=== PATIENT | female | born 1990 | race Caucasian/White ===

== ENCOUNTER 2020-02-18 15:50 | Outpatient (CLI) | payer OTHER, SELFPAY ==
[2020-02-18 16:03] LABS: Basophils Percent Auto 0.5 % (0.2-1.2); Eosinophils Percent Auto 0.4 % (0-4.4); Immature Granulocyte Absolute 0.01 K/mm3 (0.00-0.031); Immature Granulocyte Percent A 0.1 % (0-0.5); Lymphocytes Absolute Auto 1.94 K/mm3 (0.9-3.2); Lymphocytes Percent Auto 25.3 % (18.3-44.2); Mean Corpuscular HGB Conc 30.6 g/dl (32-36); Mean Corpuscular Hemoglobin 23.4 pg (26-34); Mean Corpuscular Volume 76.6 fl (80-100); Mean Platelet Volume 9.6 fl (7.4-10.4); Monocytes Absolute Auto 0.6 K/mm3 (0.1-0.6); Neutrophils Percent Auto 65.7 % (45.5-73.1); Platelet Count Result 456 k/mm3 (150-375); Red Cell Distribution Width 19.4 % (11.5-14.5); White Blood Count 7.7 K/mm3 (4.5-10.0)
[2020-02-18 16:49] LABS: Iron 25 ug/dL (37-170)
[2020-02-18 16:52] LABS: Alanine Aminotransferase 14 U/L (4-35); Albumin Level 4.7 g/dL (3.5-5.1); Alkaline Phosphatase 86 U/L (38-126); Aspartate Amino Transferase 19 U/L (14-36); Bilirubin,Total 0.3 mg/dL (0.2-1.3); Blood Urea Nitrogen 12 mg/dL (7-17); Calcium 9.2 mg/dL (8.4-10.2); Carbon Dioxide 25 mmol/L (22-30); Chloride 103 mmol/L (98-107); Estimated Glomerular Filt Rate > 60; Glucose 95 mg/dL (65-105); Lactate Dehydrogenase 368 U/L (313-618); Sodium 136 mmol/L (137-145)
[2020-02-18 16:58] LABS: Percent Iron Saturation 5 % (20-50)
[2020-02-18 17:24] LABS: Ferritin 4.03 ng/mL (6.24-137)
[2020-02-22 16:42] LABS: Soluble Transferrin Receptor 2.77 mg/L (0.76-1.76)
== END 2020-02-18 15:51 | disposition home or self-care (01) ==
LOC: ANHLAB 15:52
PROVIDERS: PCP Family Medicine; Visit Provider Internal Medicine Hematology & Oncology
DX: D50.0 Iron deficiency anemia secondary to blood loss (chronic) (principal)
CPT/HCPCS: 36415; 80053; 82728; 83540; 83550; 83615; 84238; 85025

== ENCOUNTER 2020-12-31 09:37 | Outpatient (CLI) | payer OTHER, SELFPAY ==
[2020-12-31 10:00] LABS: Basophils Percent Auto 0.8 % (0.2-1.2); Eosinophils Absolute Auto 0.1 K/mm3 (0-0.3); Eosinophils Percent Auto 2.2 % (0-4.4); Hematocrit 41.4 % (37.0-47.0); Hemoglobin 13.7 g/dL (12.0-15.0); Lymphocytes Absolute Auto 1.83 K/mm3 (0.9-3.2); Lymphocytes Percent Auto 36.9 % (18.3-44.2); Mean Corpuscular HGB Conc 33.1 g/dl (32-36); Mean Corpuscular Hemoglobin 29.8 pg (26-34); Mean Platelet Volume 9.5 fl (7.4-10.4); Monocytes Absolute Auto 0.3 K/mm3 (0.1-0.6); Monocytes Percent Auto 6.5 % (2.6-8.5); Neutrophils Absolute Auto 2.7 K/mm3 (1.3-6.7); Neutrophils Percent Auto 53.6 % (45.5-73.1); Platelet Count Result 268 k/mm3 (150-375); Red Cell Distribution Width 12.7 % (11.5-14.5)
[2020-12-31 12:16] LABS: Alanine Aminotransferase 16 U/L (4-35); Albumin Level 4.3 g/dL (3.5-5.1); Alkaline Phosphatase 59 U/L (38-126); Anion Gap 6 mmol/L (8-16); Aspartate Amino Transferase 20 U/L (14-36); Bilirubin,Total 0.3 mg/dL (0.2-1.3); Blood Urea Nitrogen 11 mg/dL (7-17); Calcium 9.1 mg/dL (8.4-10.2); Carbon Dioxide 26 mmol/L (22-30); Chloride 106 mmol/L (98-107); Estimated Glomerular Filt Rate > 60; Glucose 104 mg/dL (65-105); Potassium 4.4 mmol/L (3.4-5.0); Sodium 138 mmol/L (137-145)
[2020-12-31 12:43] LABS: Iron 119 ug/dL (37-170)
[2020-12-31 12:53] LABS: Percent Iron Saturation 38 % (20-50)
[2020-12-31 13:20] LABS: Folic Acid 6.1 ng/mL (2.76->20)
== END 2020-12-31 09:38 | disposition home or self-care (01) ==
LOC: ANHLAB 09:39
PROVIDERS: PCP Family Medicine; Visit Provider Internal Medicine Hematology & Oncology
DX: D50.0 Iron deficiency anemia secondary to blood loss (chronic) (principal)
CPT/HCPCS: 36415; 80053; 82607; 82728; 82746; 83540; 83550; 85025

== ENCOUNTER 2022-08-06 08:27 | Emergency (ER) | payer BC, OTHER, SELFPAY ==
--- NOTE | ~2022-08-06 | CT_ITS ---
EXAMINATION: CT abdomen pelvis wo con DATE: 08/06/2022 10:52 INDICATION: Right flank pain TECHNIQUE: Computed tomography (CT) of the abdomen and pelvis was performed without intravenous contr ast. The dose-length product was 1009.70 mGy-cm. Automated exposure control and iterative reconstruct ion technique were employed. COMPARISON: No prior studies for comparison. FINDINGS: There is dependent atelectasis of the lung bases. Heart size normal. There is a 3 mm calcif ication in the right pelvis likely within the ureter near the UVJ. There is mild right hydronephrosis . The left kidney is unremarkable. The appendix is normal. The liver, spleen, pancreas, adrenal glands and left kidney are unremarkable. Gallbladder is unremark able. Nonobstructive bowel pattern. No acute osseous abnormality. IMPRESSION: 1. Probable 3 mm distal right ureteral stone near the UVJ. Mild right hydronephrosis. Reviewed, dictated and finalized at location A. IMPRESSION: 1. Probable 3 mm distal right ureteral stone near the UVJ. Mild right hydroneph rosis.
[2022-08-06 08:36] VITALS: BP 123/77; PULSE 69; RESP 18; TEMP 36.9; O2SAT 98
[2022-08-06 09:53] LABS: Basophils Percent Auto 0.5 % (0.2-1.2); Eosinophils Percent Auto 0.3 % (0-4.4); Hematocrit 42.1 % (37.0-47.0); Hemoglobin 13.7 g/dL (12.0-15.0); Immature Granulocyte Absolute 0.02 K/mm3 (0.00-0.031); Immature Granulocyte Percent A 0.3 % (0-0.5); Lymphocytes Absolute Auto 0.91 K/mm3 (0.9-3.2); Lymphocytes Percent Auto 12.4 % (18.3-44.2); Mean Corpuscular HGB Conc 32.5 g/dl (32-36); Mean Corpuscular Hemoglobin 29.3 pg (26-34); Mean Corpuscular Volume 90.1 fl (80-100); Mean Platelet Volume 9.9 fl (7.4-10.4); Monocytes Absolute Auto 0.3 K/mm3 (0.1-0.6); Monocytes Percent Auto 4.6 % (2.6-8.5); Neutrophils Percent Auto 81.9 % (45.5-73.1); Platelet Count Result 292 k/mm3 (150-375); Red Blood Count 4.67 M/mm3 (4.2-5.4); Red Cell Distribution Width 13.1 % (11.5-14.5); White Blood Count 7.4 K/mm3 (4.5-10.0)
[2022-08-06] MEDS: SODIUM CHLORIDE 0.9% IV 1,000 ML 999 ML IV CONT (09:57)
[2022-08-06] MEDS: ONDANSETRON INJ 4 MG/2 ML VIAL IV PUSH (09:58)
[2022-08-06] MEDS: MORPHINE SULFATE (*CRX) 4 MG/ML INJ IV PUSH (09:58)
[2022-08-06 10:16] LABS: Appearance Urine Clear (Clear); Bilirubin Urine 1+ (Negative); Blood Urine 2+ (Negative); Color Urine Yellow (Yellow); Glucose Urine UA Negative (Negative); Ketones Urine Trace mg/dL (Negative); Leukocyte Esterase Ur Negative LEU/UL (Negative); Nitrate Urine Negative (Negative); Protein Urine Trace mg/dL (Negative); Specific Grav Ur 1.025 (1.001-1.035); Urobilinogen Urine 0.2 mg/dL (<2.0); pH Urine 5.5 (5.0-9.0)
[2022-08-06 10:42] LABS: Anion Gap 9 mmol/L (8-16); Blood Urea Nitrogen 12 mg/dL (7-17); Calcium 8.8 mg/dL (8.4-10.2); Carbon Dioxide 24 mmol/L (22-30); Chloride 107 mmol/L (98-107); Estimated CRCL calculation 124 ml/min; Estimated Glomerular Filt Rate > 60; Glucose 116 mg/dL (65-110); Sodium 140 mmol/L (137-145)
[2022-08-06 10:48] LABS: Mucus Urine Few /lpf; RBC Urine 21-50 /hpf (0-2); Squamous Epithelial Cell Urine Moderate /hpf (Few)
[2022-08-06 10:50] LABS: Add Urine Microscopic? YES
[2022-08-06] MEDS: KETOROLAC 30 MG/ML VIAL (*BKC) IV PUSH (11:12)
--- NOTE | 2022-08-06 12:11 | ED.ABDPAIN ---
HPI - Abdominal Pain General Chief Complaint: Abdominal Pain Stated Complaint: right flank pain Time Seen by Provider: 08/06/22 09:24 History of Present Illness HPI narrative: Patient is a 32-year-old female who presents ER with right-sided flank pain. Sudden onset this morning. Radiates into the abdomen. Associate with some nausea. Patient had diaphoresis earlier as well. No urinary frequency or dysuria. Patient does have some sensation of urgency to urinate. No hematuria. No alleviating factors. No previous history of kidney stones. Related Data Home Medications Medication Instructions Recorded Confirmed ascorbic acid (vitamin C) 1,000 mg 1 g PO DAILY 03/16/20 07/28/20 tablet eletriptan 20 mg tablet (Relpax) 20 mg PO ONCE PRN Migraine Headache 03/16/20 07/28/20 ergocalciferol (vitamin D2) 1,250 1,250 mcg PO WEEKLY 03/16/20 07/28/20 mcg (50,000 unit) capsule (Vitamin D2) multivitamin-ferrous 1 tablet PO DAILY 03/16/20 07/28/20 fumarate-folic acid 18 mg-400 mcg tablet (Centrum Women) venlafaxine 75 mg capsule,extended 75 mg PO DAILY 03/16/20 07/28/20 release 24 hr (Effexor XR) Allergies Allergy/AdvReac Type Severity Reaction Status Date / Time cefaclor [From [facility]] AdvReac Unknown Verified 08/06/22 10:07 Review of Systems Review of Systems: All systems reviewed & are unremarkable except as noted in HPI and below Constitutional: Constitutional: Denies chills, Denies fatigue and Denies fever(s) Comments: Diaphoresis ENT: Denies nasal congestion and Denies sore throat Cardiovascular: Cardiovascular: Denies chest pain, Denies rapid heart rate and Denies radiating jaw, neck or arm pain Respiratory: Respiratory: Denies cough and Denies dyspnea Gastrointestinal: Gastrointestinal: Reports abdominal pain, Denies diarrhea, Reports nausea and Denies vomiting Genitourinary: Genitourinary: Denies nocturia, Denies dysuria and Reports flank pain PMFSH Past Medical History Medical History (Updated 08/06/22 @ 12:13 by Alex Prince MD) Anemia Migraines Surgical History Surgical History No significant past surgical history Social History Social History Smoking status: Never smoker Gender identity (if verbalized by the patient): Female Spiritual care concerns: No Exam Narrative: GENERAL: Well-appearing, well-nourished, and in no acute distress. HEAD: Normocephalic, atraumatic. NECK: Supple. CHEST: Clear to auscultation. No respiratory distress. HEART: Regular rate and rhythm. Normal peripheral pulses. ABDOMEN: Soft, nontender, nondistended. Mild right CVA tenderness. EXTREMITIES: Normal range of motion. No edema. SKIN: Warm, dry, no rash. NEURO: Alert and oriented x3. PSYCH: Normal mood and affect. Course Course Emergency Course: Patient informed of diagnosis and treatment plan. Verbalized understanding. Discharge home. Vital Signs Vital signs: Vital Signs Temperature 98.5 F 08/06/22 08:36 Pulse Rate 69 08/06/22 08:36 Respiratory Rate 18 08/06/22 08:36 Blood Pressure 123/77 08/06/22 08:36 Pulse Oximetry 98 08/06/22 08:36 Oxygen Delivery Room Air 08/06/22 08:36 Temperature 98.5 F 08/06/22 08:36 Pulse Rate 69 08/06/22 08:36 Respiratory Rate 18 08/06/22 08:36 Blood Pressure 123/77 08/06/22 08:36 Pulse Oximetry 98 08/06/22 08:36 Oxygen Delivery Room Air 08/06/22 08:36 MDM - Abdominal Pain Lab Data Result diagrams: 08/06/22 09:45 08/06/22 09:45 Labs: Lab Results 08/06/22 08/06/22 08/06/22 Range/Units 09:45 09:45 10:08 WBC 7.4 (4.5-10.0) K/mm3 RBC 4.67 (4.2-5.4) M/mm3 Hgb 13.7 (12.0-15.0) g/dL Hct 42.1 (37.0-47.0) % MCV 90.1 (80-100) fl MCH 29.3 (26-34) pg MCHC 32.5 (32-36) g/dl RDW 13.1 (11.5-14.5) % Plt Count 292 (150-375) k/mm3
[2022-08-06] MEDS: MORPHINE SULFATE (*CRX) 2 MG/ML INJ IV PUSH (12:25)
== END 2022-08-06 12:38 | disposition home or self-care (01) ==
PROVIDERS: Emergency Provider Emergency Medicine; PCP Physician Assistant
DX: N13.2 Hydronephrosis with renal and ureteral calculous obstruction (principal)
CPT/HCPCS: 36415; 74176; 80048; 81001; 81025; 85025; 87086; 87088; 96361; 96374; 96375; 96376; 99284; J1885; J2270; J2405; J7030

== ENCOUNTER 2022-08-10 01:56 | Observation (INO) | payer BC, SELFPAY ==
[2022-08-10] VITALS (11 sets, daily range): BP systolic 104–137; BP diastolic 63–87; PULSE 66–83; RESP 14–16; TEMP 36.3–36.9; O2SAT 94–100; BMI 33.7
--- NOTE | ~2022-08-10 | CT_ITS ---
EXAMINATION: CT abdomen pelvis wo con DATE: 08/10/2022 03:03 INDICATION: Flank pain. TECHNIQUE: Computed tomography (CT) of the abdomen and pelvis was performed without intravenous contr ast. Automated exposure control and iterative reconstruction technique were employed. The dose-length product was 434.98 mGy-cm. COMPARISON: CT abdomen and pelvis 08/06/2022 FINDINGS: The visualized portions of the lung bases demonstrate mild atelectasis. No pleural effusion . The heart size is normal. No pericardial effusion. The liver, gallbladder, spleen, pancreas, adrena l glands, and left kidney are normal. There is mild right hydronephrosis and hydroureter. There is a 3 mm stone in distal right ureter. There are no dilated loops of bowel. The appendix is normal. There are no pathologically enlarged lymph nodes. There is no free intraperitoneal fluid. There is mild dilip mbar spondylosis. IMPRESSION: 1. 3 mm stone in distal right ureter with mild right hydronephrosis and hydroureter. Reviewed, dictated and finalized at location A. IMPRESSION: 1. 3 mm stone in distal right ureter with mild right hydronephrosis and hydrour eter.
--- NOTE | ~2022-08-10 | XR_ITS ---
EXAMINATION: XR stent kub - surgery DATE: 08/10/2022 14:29 INDICATION: Right ureteral stone extraction TECHNIQUE: 3 fluoroscopic images of the abdomen and pelvis were obtained during procedure performed bailee Guerra. Radiologist was not present for the imaging or procedure. The amount of fluoroscopy chun e used during this procedure was 0.1 minutes. COMPARISON: CT abdomen pelvis dated 08/10/2022 and 08/06/2022 FINDINGS: Tiny metallic density in the cecum on prior CT which projects over the right hemipelvis. The stone id entified on CT at the distalmost right ureter is unable to be visualized due to either to its small s ize or interval passage. Bowel gas pattern is unremarkable. IMPRESSION: 1. Fluoroscopy utilized during reported extraction of a distal right ureteral stone which is unable b e visualized on the fluoroscopic images. Correlate with procedure note. Reviewed, dictated and finalized at location B. IMPRESSION: 1. Fluoroscopy utilized during reported extraction of a distal right ureteral s tone which is unable be visualized on the fluoroscopic images. Correlate with ludy monreal note.
[2022-08-10] MEDS: ONDANSETRON INJ 4 MG/2 ML VIAL IV PUSH ×2 (02:34→06:28)
[2022-08-10] MEDS: SODIUM CHLORIDE 0.9% IV 1,000 ML 999 ML IV CONT ×2 (02:35→04:47)
[2022-08-10] MEDS: fentaNYL CITRATE INJ (*CRX) 100 MCG/2 ML VIAL 50 MCG IV PUSH ×2 (02:35→13:45)
--- NOTE | 2022-08-10 02:46 | PC.NURSE ---
Pt is unable to void or pass urine since 19:00 (7pm) 08/09/2022. Bladder scanner shows 0 mL of urine in bladder.
[2022-08-10 03:07] LABS: Basophils Percent Auto 0.2 % (0.2-1.2); Eosinophils Percent Auto 0.3 % (0-4.4); Hematocrit 43.1 % (37.0-47.0); Hemoglobin 14.2 g/dL (12.0-15.0); Immature Granulocyte Absolute 0.03 K/mm3 (0.00-0.031); Immature Granulocyte Percent A 0.3 % (0-0.5); Immature Platelet Fraction Pct 4.8 % (0.9-11.2); Lymphocytes Percent Auto 6.7 % (18.3-44.2); Mean Corpuscular HGB Conc 32.9 g/dl (32-36); Mean Corpuscular Hemoglobin 29.5 pg (26-34); Mean Corpuscular Volume 89.6 fl (80-100); Mean Platelet Volume 11.2 fl (7.4-10.4); Monocytes Absolute Auto 0.4 K/mm3 (0.1-0.6); Monocytes Percent Auto 3.1 % (2.6-8.5); Neutrophils Absolute Auto 10.7 K/mm3 (1.3-6.7); Neutrophils Percent Auto 89.4 % (45.5-73.1); Platelet Count Result 272 k/mm3 (150-375); Red Blood Count 4.81 M/mm3 (4.2-5.4); Red Cell Distribution Width 12.9 % (11.5-14.5); White Blood Count 11.9 K/mm3 (4.5-10.0)
[2022-08-10] MEDS: MORPHINE SULFATE (*CRX) 4 MG/ML INJ IV PUSH ×4 (03:07→16:15)
[2022-08-10 04:22] LABS: Anion Gap 9 mmol/L (8-16); Blood Urea Nitrogen 12 mg/dL (7-17); Calcium 8.1 mg/dL (8.4-10.2); Carbon Dioxide 22 mmol/L (22-30); Chloride 106 mmol/L (98-107); Estimated Glomerular Filt Rate > 60; Glucose 128 mg/dL (65-110); Sodium 137 mmol/L (137-145)
[2022-08-10 04:39] LABS: Bacteria Urine Trace /hpf; Mucus Urine Rare /lpf; Squamous Epithelial Cell Urine Occasional /hpf (Few)
[2022-08-10 04:43] LABS: Appearance Urine Clear (Clear); Bilirubin Urine Negative (Negative); Blood Urine 2+ (Negative); Color Urine Yellow (Yellow); Glucose Urine UA Negative (Negative); Ketones Urine 3+ mg/dL (Negative); Leukocyte Esterase Ur Negative LEU/UL (Negative); Nitrate Urine Negative (Negative); Protein Urine Negative (Negative); Urobilinogen Urine 0.2 mg/dL (<2.0)
[2022-08-10] MEDS: KETOROLAC 30 MG/ML VIAL (*BKC) IV PUSH (04:47)
[2022-08-10 04:54] LABS: Add Urine Microscopic? YES
--- NOTE | 2022-08-10 05:33 | ED.ABDPAIN ---
HPI - Abdominal Pain General Chief Complaint: Abdominal Pain Stated Complaint: KIDNEY STONE Time Seen by Provider: 08/10/22 01:59 History of Present Illness HPI narrative: Patient is a 32-year-old female who presents ER with right-sided flank pain. Was evaluated on 08/06/2022 diagnosed with a 3 mm obstructing calculus in the distal right ureter. She followed up with Dr. Raymond with urology. He has her scheduled for a procedure on 08/14/2022 to have the stone removed. She feels her ureter is too small to pass a stone. She has been taking her Flomax, her [place], and her Zofran but is still having pain and nausea. She also apparently had a fever couple days ago and she was recently started on Bactrim. Related Data Home Medications Medication Instructions Recorded Confirmed ascorbic acid (vitamin C) 1,000 mg 1 g PO DAILY 03/16/20 07/28/20 tablet eletriptan 20 mg tablet (Relpax) 20 mg PO ONCE PRN Migraine Headache 03/16/20 07/28/20 ergocalciferol (vitamin D2) 1,250 1,250 mcg PO WEEKLY 03/16/20 07/28/20 mcg (50,000 unit) capsule (Vitamin D2) multivitamin-ferrous 1 tablet PO DAILY 03/16/20 07/28/20 fumarate-folic acid 18 mg-400 mcg tablet (Centrum Women) venlafaxine 75 mg capsule,extended 75 mg PO DAILY 03/16/20 07/28/20 release 24 hr (Effexor XR) Allergies Allergy/AdvReac Type Severity Reaction Status Date / Time cefaclor [From [facility]] AdvReac Unknown Verified 08/10/22 02:03 Review of Systems Review of Systems: All systems reviewed & are unremarkable except as noted in HPI and below Constitutional: Constitutional: Denies chills, Denies fatigue and Reports fever(s) ENT: Denies nasal congestion and Denies sore throat Gastrointestinal: Gastrointestinal: Reports abdominal pain, Denies diarrhea, Reports nausea and Reports vomiting Genitourinary: Genitourinary: Reports nocturia, Denies dysuria and Reports flank pain PMFSH Past Medical History Medical History (Updated 08/10/22 @ 05:50 by Alex Prince MD) Anemia Kidney stones Migraines Surgical History Surgical History No significant past surgical history Social History Social History Smoking status: Never smoker Gender identity (if verbalized by the patient): Female Spiritual care concerns: No Exam Narrative: GENERAL: Uncomfortable-appearing, well-nourished, and in no acute distress. HEAD: Normocephalic, atraumatic. EYES: PERRL and EOMI. ENT: Mucous membranes moist. CHEST: Clear to auscultation. No respiratory distress. HEART: Regular rate and rhythm. Normal peripheral pulses. ABDOMEN: Soft, mild RLQ discomfort,, nondistended EXTREMITIES: Normal range of motion. No edema. SKIN: Warm, dry, no rash. NEURO: Alert and oriented x3. PSYCH: Normal mood and affect. Course Course Emergency Course: Patient resting comfortably after fentanyl/morphine/Toradol. Discussed case with urology who will admit patient primarily take to the OR today. Vital Signs Vital signs: Vital Signs Temperature 97.3 F L 08/10/22 01:59 Pulse Rate 72 08/10/22 01:59 Respiratory Rate 16 08/10/22 01:59 Blood Pressure 137/87 08/10/22 01:59 Pulse Oximetry 100 08/10/22 01:59 Temperature 97.3 F L 08/10/22 01:59 Pulse Rate 72 08/10/22 01:59 Respiratory Rate 16 08/10/22 01:59 Blood Pressure 137/87 08/10/22 01:59 Pulse Oximetry 100 08/10/22 01:59 MDM - Abdominal Pain Lab Data Result diagrams: 08/10/22 02:43 08/10/22 03:32 Labs: Lab Results 08/10/22 08/10/22 08/10/22 Range/Units 02:43 03:32 04:29 WBC 11.9 H (4.5-10.0) K/mm3 RBC 4.81 (4.2-5.4) M/mm3 Hgb 14.2 (12.0-15.0) g/dL Hct 43.1 (37.0-47.0) % MCV 89.6 (80-100) fl MCH 29.5 (26-34) pg MCHC 32.9 (32-36) g/dl RDW 12.9 (11.5-14.5) % Plt Count 272 (150-375) k/mm3 MPV 11.2 H (7.4-10.4)
--- NOTE | 2022-08-10 06:18 | ADMGEN ---
This patient, Barbra Raines, was admitted to 2 Medical Room 240-01. Patient/family oriented to hospital policies and general routines including ID bracelet, bed and alarms, visiting hours, pain management, procedures, bathroom and other care routines, personal items, smoking policy, room service/diet, and visiting hours. Information on how to activate the Rapid Response Team has been discussed. Patient/Family are encouraged to report perceived risks to care and to ask questions if they do not understand what they are told or what they should do.
[2022-08-10] MEDS: SODIUM CHLORIDE 0.9% IV 1,000 ML 125 ML IV CONT (06:28)
[2022-08-10 06:31] LABS: SARS-CoV-2 RNA PCR Negative
--- NOTE | 2022-08-10 07:25 | PM.IMHP ---
H&P: HPI History of Present Illness Date/Time: 08/10/22 07:25 Chief Complaint: Right flank pain Narrative: Pleasant young woman who has had a 4-5 day history of intermittent severe right flank pain to right lower quadrant. She was in the ER at [facility] 4 days ago were imaging demonstrated a 3 mm distal ureteral calculus. An attempt has been made at conservative management but she continues to have intermittent severe pain prompting a 2nd visit. She has had nausea with some vomiting but no fevers chills or gross hematuria. After discussion of options we decided to admit her for hydration analgesics and plan a right ureteroscopy with stone extraction with possible laser lithotripsy, retrograde pyelography and stent placement. She is aware the risk including ureteral edema ureteral injury that would necessitate stent placement. Review of Systems Review of Systems: All systems reviewed & are unremarkable except as noted in HPI and below PMFSH Past Medical History Medical History (Updated 08/10/22 @ 05:50 by Alex Prince MD) Anemia Kidney stones Migraines Surgical History Surgical History No significant past surgical history Social History Social History Smoking status: Never smoker Alcohol intake: current Drinks per week: 1 Substance use: never Has the Lack of Transportation Kept You From Medical Appointments or From Getting Medications?: No Within the Past 12 Months, Were You Worried Whether Your Food Would Run Out Before You Got Money to Buy More?: Never True What is Your Housing Situation Today?: I Have Housing Are You Worried That in the Next 2 Months, You May Not Have Your Own Housing to Live In?: No Do You Have Trouble Paying Your Heating Or Electricity Bill?: No Do You Have Trouble Paying For Medicines?: No Are You Currently Unemployed and Looking for Work?: No Highest Level of Education Completed: Master's Degree or Higher Do You Have Trouble With Childcare or the Care of a Family Member?: No Gender identity (if verbalized by the patient): Female Spiritual care concerns: No Meds Home Medications and Allergies Home Medications Medication Instructions Recorded Confirmed Type ascorbic acid (vitamin C) 1,000 mg 1 g PO DAILY 03/16/20 08/10/22 History tablet eletriptan 20 mg tablet (Relpax) 20 mg PO ONCE PRN Migraine Headache 03/16/20 08/10/22 History ergocalciferol (vitamin D2) 1,250 1,250 mcg PO WEEKLY 03/16/20 08/10/22 History mcg (50,000 unit) capsule (Vitamin D2) venlafaxine 75 mg capsule,extended 75 mg PO DAILY 03/16/20 08/10/22 History release 24 hr (Effexor XR) hydrocodone 5 mg-acetaminophen 325 1 tablet PO Q6H PRN pain #14 tabs 08/06/22 08/10/22 Rx mg tablet ondansetron 4 mg disintegrating 4 mg PO Q6H PRN nausea and 08/06/22 08/10/22 Rx tablet vomiting #10 tabs tamsulosin 0.4 mg capsule 0.4 mg PO DAILY #7 caps 08/06/22 08/10/22 Rx B-complex with vitamin C 10 ml MONTHLY 08/10/22 08/10/22 History Allergies Allergy/AdvReac Type Severity Reaction Status Date / Time cefaclor [From [facility]] AdvReac Unknown Verified 08/10/22 02:03 Vital Signs Vital Signs - 24 hr 08/10/22 01:59 08/10/22 06:15 Temperature 97.3 F L 97.7 F Pulse Rate 72 76 Respiratory Rate 16 16 Blood Pressure 137/87 120/76 Pulse Oximetry 100 98 Exam Const: General: no acute distress Resp: Effort & Inspection: normal respiratory effort GI: Inspection: non-distended GI Palp: No abdominal tenderness and No Guarding due to palpation present (GI) Auscultation: normal bowel sounds H&P: Results Labs Labs: Short CBC 08/10/22 Range/Units 02:43 WBC 11.9 H (4.5-10.0) K/mm3 Hgb 14.2 (12.0-15.0) g/dL Hct 43.1 (37.0-47.0) % Plt Count 272 (150-375) k/mm3 BMP 08/10/22 03:32 Sodium 137 Potassium 4.0 Chloride 106 Carbon Dioxide 2
--- NOTE | 2022-08-10 07:28 | WPDHPUPDATE1 ---
History and Physical Update Update Date/Time: 08/10/22 07:28 History and Physical has been reviewed, including an updated exam of the patient. There are NO changes in the patient's condition. Risks, benefits, and alternatives have been discussed and questions answered. Patient agrees to proceed with procedure.
[2022-08-10] MEDS: LACTATED RINGERS 1,000 ML 30 ML IV CONT (13:25)
--- NOTE | 2022-08-10 13:41 | WPDANESEPPF ---
Anes - Initial Pre Proc Eval Procedure: Operation Date: 08/10/22 14:15 Proposed Procedures p Cystoscopy, Right Ureteroscopy, Possible Right Retrograde Pyelogram, Possible Right Stone Extraction, Possible Right Stent Placement, Possible Holmium Laser - Ankur Guerra MD Date/Time: 08/10/22 13:41 Surgeon: Ankur Guerra MD Pre Op Diagnosis: Ureterolithiasis Patient Data Age: 32 Gender: F Height: 1.73 m Weight: 100.5 kg Last Vital Signs Temp 36.9 C 08/10/22 13:23 Pulse 83 08/10/22 13:23 Resp 16 08/10/22 13:23 BP 125/63 08/10/22 13:23 Pulse Ox 98 08/10/22 13:23 O2 Del Method Room Air 08/10/22 13:23 Allergies Allergy/AdvReac Type Severity Reaction Status Date / Time cefaclor [From [facility]] AdvReac Unknown Verified 08/10/22 02:03 Home Medications Medication Instructions Recorded Confirmed Type ascorbic acid (vitamin C) 1,000 mg 1 g PO DAILY 03/16/20 08/10/22 History tablet eletriptan 20 mg tablet (Relpax) 20 mg PO ONCE PRN Migraine Headache 03/16/20 08/10/22 History ergocalciferol (vitamin D2) 1,250 1,250 mcg PO WEEKLY 03/16/20 08/10/22 History mcg (50,000 unit) capsule (Vitamin D2) venlafaxine 75 mg capsule,extended 75 mg PO DAILY 03/16/20 08/10/22 History release 24 hr (Effexor XR) hydrocodone 5 mg-acetaminophen 325 1 tablet PO Q6H PRN pain #14 tabs 08/06/22 08/10/22 Rx mg tablet ondansetron 4 mg disintegrating 4 mg PO Q6H PRN nausea and 08/06/22 08/10/22 Rx tablet vomiting #10 tabs tamsulosin 0.4 mg capsule 0.4 mg PO DAILY #7 caps 08/06/22 08/10/22 Rx B-complex with vitamin C 10 ml MONTHLY 08/10/22 08/10/22 History Laboratory Tests 08/10/22 08/10/22 08/10/22 02:43 03:32 04:29 WBC 11.9 K/mm3 H K/mm3 (4.5-10.0) RBC 4.81 M/mm3 M/mm3 (4.2-5.4) Hgb 14.2 g/dL g/dL (12.0-15.0) Hct 43.1 % % (37.0-47.0) MCV 89.6 fl fl (80-100) MCH 29.5 pg pg (26-34) MCHC 32.9 g/dl g/dl (32-36) RDW 12.9 % % (11.5-14.5) Plt Count 272 k/mm3 k/mm3 (150-375) MPV 11.2 fl H fl (7.4-10.4) Immature Gran % (Auto) 0.3 % % (0-0.5) Neut % (Auto) 89.4 % H % (45.5-73.1) Lymph % (Auto) 6.7 % L % (18.3-44.2) [place] % (Auto) 3.1 % % (2.6-8.5) Eos % (Auto) 0.3 % % (0-4.4) Baso % (Auto) 0.2 % % (0.2-1.2) Lymph # (Auto) 0.80 K/mm3 L K/mm3 (0.9-3.2) [place] # (Auto) 0.4 K/mm3 K/mm3 (0.1-0.6) Eos # (Auto) 0.0 K/mm3 K/mm3 (0-0.3) Baso # (Auto) 0.0 K/mm3 K/mm3 (0.0-0.1) Abs Immat Gran (auto) 0.03 K/mm3 K/mm3 (0.00-0.031) Absolute Neuts (auto) 10.7 K/mm3 H K/mm3 (1.3-6.7) Absolute Nucleated RBC 0.0 K/mm3 K/mm3 (0.0-0.012) Nucleated RBC % 0.0 % % (0.0-0.2) % Immature Plt Fraction 4.8 % % (0.9-11.2) Sodium 137 mmol/L mmol/L (137-145) Potassium 4.0 mmol/L mmol/L (3.4-5.0) Chloride 106 mmol/L mmol/L (98-107) Carbon Dioxide 22 mmol/L mmol/L (22-30) Anion Gap 9 mmol/L mmol/L (8-16) BUN 12 mg/dL mg/dL (7-17) Creatinine 0.80 mg/dL mg/dL (0.7-1.0) Estim Creat Clear Calc Not Reportable Estimated GFR > 60 (59 - ) Glucose 128 mg/dL H mg/dL (65-110) Calcium 8.1 mg/dL L mg/dL (8.4-10.2) Urine Color Yellow (Yellow) Urine Appearance Clear (Clear) Urine pH 7.0 (5.0-9.0) Ur Specific [place] 1.020 (1.001-1.035) Urine Protein Negative mg/dL mg/dL (Negative) Urine Glucose (UA) Negative mg/dL mg/dL (Negative) Urine Ketones 3+ mg/dL H mg/dL (Negative) Ur Blood (Man) 2+ H (Negative) Urine Nitrate Negative (Negative) Urine Bilirubin Negative (Negative) Urine Urobilinogen 0.
[2022-08-10] MEDS: LIDOCAINE HCL 2% GEL UROJET 10 ML PKG MUCOUS MEM (14:11)
[2022-08-10] MEDS: ceFAZolin 2 GM/D5W 50 ML 2 GM/50 ML BAG IVPB (14:11)
--- NOTE | 2022-08-10 14:24 | W.PM.PROC2 ---
Procedure Note - Detailed Date of Procedure 08/10/22 Pre-op Diagnosis Ureterolithiasis Post-op Diagnosis Same Procedure Performed Cystoscopy, right ureteroscopy with stone extraction Surgeon Ankur Guerra MD Anesthesia General Description of Procedure The patient was brought to the operative suite where she is prepped and draped in a routine sterile fashion while in the dorsal lithotomy position after the uneventful induction of a general LMA anesthetic. A 19F rigid cystoscope was placed in the bladder. The patient had no evidence of urethral stricture or bladder neck contracture. The bladder mucosa was endoscopically normal without hyperemia or neoplasm. There was a single, orthotopic ureteral orifice bilaterally. A 0.035 glidewire was advanced into the right renal pelvis under fluoroscopy. The distal ureter was dilated with an 8F/10F ureteral dilator. Ureteroscopy was undertaken with a short, tapered, semi-rigid ureteroscope and the stone was extracted with ease using a 1.9F Escape disposable stone basket. Due to the ease of this manipulation I opted not to place a ureteral stent. The patient's bladder was emptied and was taken to the recovery room having tolerated this procedure well. Drains No Packing No Pathology Yes Complications No immediate complications Condition Stable Disposition PACU
--- NOTE | 2022-08-11 16:48 | PM.DS ---
DS: Admitting Diagnosis Discharge Date 08/10/22 Admitting Diagnosis Right ureteral calculus DS: Summary Hospital Course Hospital Course: Patient had been in the ER twice with severe right renal colic as a result of a small right distal ureteral stone. On the 2nd occasion we admitted her the following morning proceed with a uneventful endoscopic right ureteral stone extraction. Later that afternoon she was comfortable and tolerating a diet, hence our decision for discharge. Time Spent with Patient Time attestation: Total time spent providing and/or coordinating discharge services: DS: Data Data Completed and Pending Pending studies at discharge: Pending at discharge 08/10/22 14:23 Surgical [PTH] Routine Discharge Plan Discharge Attending physician on discharge: Ankur Guerra Consulting providers: Nicanor Clay V. ; Cordell Ruiz ; Matt Bedolla Discharging Clinician: Ankur Guerra Patient Disposition: Home, Self-Care Activity: no driving Diet: as tolerated Discharge Instructions: 1) Activity: no driving or important decisions x24 hours. 2) Diet: resume your normal, pre-admission diet. 3) Follow-up: 2-3 weeks / call for appointment ([phone]). Patient Instructions: Antibiotic Form Stand Alone Forms: General Discharge Information Follow-up/Referrals: Ankur Guerra MD [Physician] - Discharge Medications: New hydrocodone-acetaminophen 5-325 mg tablet 1 - 2 tablet PO Q6H PRN (Reason: pain) Qty: 20 0RF sulfamethoxazole-trimethoprim 800-160 mg tablet 1 tablet PO Q12H Qty: 6 0RF Continued ascorbic acid (vitamin C) 1,000 mg Tablet 1 g PO DAILY venlafaxine [Effexor XR] 75 mg Capsule,Extended Release 24hr 75 mg PO DAILY ergocalciferol (vitamin D2) [Vitamin D2] 1,250 mcg (50,000 unit) Capsule 1,250 mcg PO WEEKLY eletriptan [Relpax] 20 mg Tablet 20 mg PO ONCE PRN (Reason: Migraine Headache) B-complex with vitamin C Solution 10 ml MONTHLY hydrocodone-acetaminophen 5-325 mg tablet 1 tablet PO Q6H PRN (Reason: pain) Qty: 14 0RF tamsulosin 0.4 mg capsule 0.4 mg PO DAILY Qty: 7 0RF ondansetron 4 mg tablet,disintegrating 4 mg PO Q6H PRN (Reason: nausea and vomiting) Qty: 10 0RF Date of admission: 08/10/22 05:46 Primary Care Provider: EugeneTanisha Admitting Provider: Ankur Guerra Attending physician on admission: Ankur Guerra Condition: Stable
== END 2022-08-10 17:55 | disposition home or self-care (01) ==
LOC: ANHED 05:50 → ANH2MED 06:13
PROVIDERS: Admitting Provider Urology; Emergency Provider Emergency Medicine; PCP Physician Assistant; Visit Provider Urology
PROC: (CPT 52352; principal; 2022-08-10 14:15)
DX: N13.2 Hydronephrosis with renal and ureteral calculous obstruction (principal); D64.9 Anemia, unspecified; G43.909 Migraine, unspecified, not intractable, without status migrainosus; Z20.822 Contact with and (suspected) exposure to COVID-19; Z87.442 Personal history of urinary calculi; Z79.891 Long term (current) use of opiate analgesic; Z79.899 Other long term (current) drug therapy
CPT/HCPCS: 52352; 36415; 74176; 80048; 81001; 82365; 85025; 85055; 88300; 96361; 96374; 96375; 96376; 99285; C1769; G0378; J0690; J1100; J1885; J2250; J2270; J2405; J2704; J3010; J7030; J7120; U0003; U0005

== ENCOUNTER → 2023-02-26 16:04 | Outpatient (CLI) | payer BC, SELFPAY ==
--- NOTE | ~2023-02-26 | XR_ITS ---
EXAM: XR abdomen/kub 1V DATE: 02/26/2023 16:44 HISTORY: RIGHT URETERAL STONE . COMPARISON: 08/10/2022 CT and KUB. FINDINGS: Clear lung bases. Normal bowel gas pattern. No organomegaly. No abnormal abdominal calcifi cation. Regional bones and soft tissues normal for age. Pelvic phleboliths. IMPRESSION: No radiographic evidence of nephrolithiasis. Reviewed, dictated and finalized at location K.
== END ==
PROVIDERS: PCP Urology; Visit Provider Urology
DX: N20.1 Calculus of ureter (principal)
CPT/HCPCS: 74018

== ENCOUNTER 2025-06-12 15:56 | Outpatient (CLI) | payer BC, SELFPAY ==
--- NOTE | ~2025-06-12 | XR_ITS ---
EXAM/ PROCEDURE: XR toe 1st LT min 2V - 06/12/2025 16:09 CDT HISTORY: 35 years old Female with Contusion of unspecified lesser toe(s) without damage to everardo COMPARISON: None available TECHNIQUE: Three view(s) FINDINGS/ IMPRESSION: Probable nondisplaced fracture of the head of the first proximal phalanx. Correlate with point tenderness for confirmation. No dislocations. Joint spaces are within normal limits. Reviewed, dictated and finalized at location N.
== END 2025-06-12 15:57 | disposition home or self-care (01) ==
PROVIDERS: PCP Physician Assistant; Visit Provider Physician Assistant
DX: S90.129A Contusion of unspecified lesser toe(s) without damage to nail, initial encounter (principal); X58.XXXA Exposure to other specified factors, initial encounter
CPT/HCPCS: 73660

== ENCOUNTER 2025-08-18 08:28 | Outpatient (CLI) | payer BC, SELFPAY ==
--- NOTE | ~2025-08-18 | XR_ITS ---
EXAMINATION: XR hand RT min 3V, XR wrist RT min 3V DATE: 08/18/2025 08:54 INDICATION: Right hand and wrist pain TECHNIQUE: 1. Posteroanterior, ulnar deviation, oblique, and lateral views of the right wrist were obtained. 2. Dorsal palmar, oblique and lateral views of the right hand were obtained. COMPARISON: None. FINDINGS: 3 mm ulnar minus variance. Alignment of the hand and wrist is otherwise normal. No fracture identified. 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 Soft tissues are unremarkable. IMPRESSION: 1. 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 Reviewed, dictated and finalized at location A. [employer] IMPRESSION: 1. 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
== END 2025-08-18 08:29 | disposition home or self-care (01) ==
PROVIDERS: PCP Physician Assistant
DX: M19.031 Primary osteoarthritis, right wrist (principal); M19.041 Primary osteoarthritis, right hand
CPT/HCPCS: 73110; 73130